=== PATIENT | male | born 1940 | race Caucasian/White ===

== ENCOUNTER → 2016-11-13 | Outpatient (CLI) | payer MEDICARE, OTHER ==
--- NOTE | ~2016-11-13 | ECH ---
Transthoracic Echocardiography Report (TTE) Demographics Patient Name SANDRA GREENWOOD JR Date of Study 11/13/2016 Patient Number [id number] Visit Number [id number] Date of 1940 Room Number Accession Number [id number] Gender Male Age 76 year(s) Referring Buck Clarke MD Estimate Clerk Lin Wahl [facility] Physician Physician Interpreting King Adair Laguna MD Rn Urgent Care Physician Supervising Ordering Physician Buck Clarke MD, MD/P Nurse Stress Hydrometeorological Technician Conclusions Summary Technically fair exam. The estimated left ventricular ejection fraction is 50% in underlying atrial fibrillation. Moderate left ventricular hypertrophy. The right atrium is mildly dilated. Mild mitral regurgitation by color Doppler. The aortic valve appears to be bicuspid. There is mild aortic regurgitation by color Doppler. Procedure Type of Study TTE procedure:Echo Complete SF. Procedure Date Date: 11/13/2016 Start: 01:57 PM Technical Quality: Fair due to body habitus. Indications:Atrial fibrillation. Appropriate Use Criteria: 9 Height: 71 inches Weight: 240 pounds BSA: 2.28 m Rhythm: Atrial fibrillation HR: 105 bpm BP: 110/68 mmHg M-Mode/2D Measurements LV Diastolic Dimension: 4.26 cm LV Systolic Dimension: 3.76 cm LV Septum Diastolic: 1.86 cm LV PW Diastolic: 1.46 cm AO Root Dimension: 2.97 cm Cardiac Output: 6.81 l/min LA Dimension: 4.51 cm Cardiac Index: 2.99 l/min*m RV Diastolic Dimension: 3.96 cm LA volume index: 27 ml/m LVOT: 2.31 cm LVOT VTI: 15.48 cm RV Base: 3.4 cm LV Stroke volume: 64.84 ml RV Mid: 2.9 cm LV Stroke volume index: 28.44 ml/m RV Length: 7.3 cm TAPSE: 1.8 cm TDI-S': 13 cm/s Doppler Measurements AV Peak Velocity: 1.6 m/s MV Peak E-Wave: 0.73 m/s AV Peak Gradient: 10.24 mmHg AV Mean Gradient: 6.98 mmHg LVOT Peak Velocity: 0.72 m/s AV Area (Continuity):2.2 cm AV P1/2t: 383.2 msec PV Peak Velocity: 0.73 m/s PV Peak Gradient: 2.15 mmHg RA Area: 21.71 cm Findings Left Ventricle The left ventricle is normal in size . Moderate left ventricular hypertrophy. Diastolic function indeterminate due to patient's arrhythmia. Right Ventricle Normal right ventricle structure and function. Left Atrium Normal left atrial size. Right Atrium The right atrium is mildly dilated. Mitral Valve Normal mitral valve structure and function. Mild mitral regurgitation by color Doppler. Aortic Valve The aortic valve is mildly sclerotic. The aortic valve appears to be bicuspid. There is mild aortic regurgitation by color Doppler. Tricuspid Valve Normal tricuspid valve structure and function. Pulmonic Valve Normal pulmonic valve structure and function. Pericardial Effusion No evidence of pericardial effusion. Miscellaneous Visualized portions of the aortic root and ascending aorta appear normal in size. Pleural Effusion No evidence of pleural effusion. Contractility Score LV regional wall motion:(0-Non visualized 1-Normal 2-Hypokinesis 3-Akinesis 4-Dyskinesis 5-Aneurysm) Signature
== END | disposition home or self-care (01) ==
LOC: CARD 13:42
DX: I48.91 Unspecified atrial fibrillation (principal); I35.1 Nonrheumatic aortic (valve) insufficiency; I34.0 Nonrheumatic mitral (valve) insufficiency; I51.7 Cardiomegaly